=== PATIENT | male | born 1990 | race Caucasian/White ===

== ENCOUNTER 2018-04-20 18:18 | Emergency (ER) | payer BC ==
--- NOTE | 2018-04-20 19:30 | ER Document Report ---
ED General - General Mode of Arrival: Ambulatory Information source: Patient TRAVEL OUTSIDE OF THE [place] IN LAST 30 DAYS: No <DANIEL RIOS - Last Filed: 04/20/18 22:48> <ALEX CASTAÑEDA - Last Filed: 04/21/18 01:39> - General Chief Complaint: Fall Injury Stated Complaint: KNEE LACERATION/FALL Time Seen by Provider: 04/20/18 18:46 Notes: 27 y.o male presents to the ED s/p fall and injury to his LT knee. Pt reports that he slipped outside on his shed and fell on his LT knee and sliced it. Pt reports a tetanus vaccination within the last 2 years. Pt denies any other medical issues. (DANIEL RIOS) - Related Data Allergies/Adverse Reactions: No Known Allergies Allergy (Verified 04/20/18 18:19) Past Medical History - General Information source: Patient - Social History Smoking Status: Unknown if Ever Smoked Occupation: [employer] Family History: Reviewed & Not Pertinent - Immunizations Hx Diphtheria, Pertussis, Tetanus Vaccination: Yes - W/in the last 2 years <DANIEL RIOS - Last Filed: 04/20/18 22:48> Review of Systems - Review of Systems Constitutional: No symptoms reported EENT: No symptoms reported Cardiovascular: No symptoms reported Respiratory: No symptoms reported Gastrointestinal: No symptoms reported Genitourinary: No symptoms reported Male Genitourinary: No symptoms reported Musculoskeletal: No symptoms reported Skin: See HPI, Other - Laceration LT knee Hematologic/Lymphatic: No symptoms reported Neurological/Psychological: No symptoms reported -: Yes All other systems reviewed and negative <DANIEL RIOS - Last Filed: 04/20/18 22:48> Physical Exam <DANIEL RIOS - Last Filed: 04/20/18 22:48> <ALEX CASTAÑEDA - Last Filed: 04/21/18 01:39> - Vital signs Vitals: Temp Pulse Resp BP Pulse Ox 98.3 F 72 16 134/88 H 96 04/20/18 18:42 04/20/18 18:42 04/20/18 18:42 04/20/18 18:42 04/20/18 18:42 - Notes Notes: Physical Exam: General: Alert, appears well. HEENT: Normocephalic. Atraumatic. PERRL. Extraocular movements intact. Oropharynx clear. Neck: Supple. Non-tender. Respiratory: No respiratory distress. Clear and equal breath sounds bilaterally. Cardiovascular: Regular rate and rhythm. Abdominal: Normal Inspection. Non-tender. No distension. Normal Bowel Sounds. Back: Non-tender. No deformity or step off. Extremities: Moves all four extremities. Upper extremities: Normal inspection. Normal ROM. Lower extremities: LLE with 5cm laceration to the center of the patella. No crepitus to LT knee. No visualization of bone or tendon. No edema. Normal ROM. Normal gait. Neurological: Normal cognition. AAOx3. Normal speech. Psychological: Normal affect. Normal Mood. Skin: Warm. Dry. See lower extremities above. (DANIEL RIOS) Course <DANIEL RIOS - Last Filed: 04/20/18 22:48> <ALEX CASTAÑEDA - Last Filed: 04/21/18 01:39> - Re-evaluation Re-evalutation: 04/20/18 20:12 No evidence of fracture or joint capsule compromise. Expiration of knee did not show any foreign debris. X-ray did not show any foreign body. Laceration was thoroughly clean with Hibiclens and saline solution. Patient tolerated well. Return precautions provided regarding signs or symptoms of infection. Antibiotics deferred as wound was thoroughly cleaned. Tetanus has been within the last 2 years (ALEX CASTAÑEDA) - Vital Signs Vital signs: Temp Pulse Resp BP Pulse Ox 98.5 F 63 16 137/85 H 98 04/20/18 20:19 04/20/18 20:19 04/20/18 18:42 04/20/18 20:19 04/20/18 20:19 Procedures - Laceration/Wound Repair Left Knee Time completed: 20:04 <DANIEL RIOS - Last Filed: 04/20/18 22:48> - Laceration/Wound Repair Left Knee Wound length (cm): 5 Wound's Depth, Shape: Linear - No joint capsule visualized no bone visualized full-thickness laceration Laceration pre-procedure: Shur-Clens applied Anesthetic type: 1% Lidocaine Volume Anesthetic (mLs): 5 Wound explored: Clean Wound Repaired With: Sutures Suture Size/Type: Prolene - 2.0 Number of Sutures: 5 Post-procedure wound care: Sterile dressing applied Complications: No <ALEX CASTAÑEDA - Last Filed: 04/21/18 01:39> Discharge <DANIEL RIOS - Last Filed: 04/20/18 22:48> <ALEX CASTAÑEDA - Last Filed: 04/21/18 01:39> - Discharge Clinical Impression: Laceration of knee Qualifiers: Encounter type: initial encounter Laterality: left Qualified Code(s): S81.012A - Laceration without foreign body, left knee, initial encounter Condition: Good Disposition: HOME, SELF-CARE Instructions: Laceration Care ([facility]) Scribe Attestation: 04/21/18 01:39 I personally performed the services described documentation, reviewed and edited the documentation which was dictated to describe my presence, and it accurately records my words and actions. (ALEX CASTAÑEDA) Scribe Documentation - Scribe Written by Scribe:: Riky Madrigal [id number]/20/[id number] acting as scribe for :: Jonny <DANIEL RIOS - Last Filed: 04/20/18 22:48>
--- NOTE | 2018-04-20 19:39 | RADIOLOGY REPORT (SQ) ---
EXAM DESCRIPTION: KNEE LEFT 3 VIEWS COMPLETED DATE/TIME: 04/20/2018 7:18 pm REASON FOR STUDY: fall, laceration, pain COMPARISON: None. NUMBER OF VIEWS: Four views. TECHNIQUE: AP, lateral, and both oblique radiographic images acquired of the left knee. LIMITATIONS: None. FINDINGS: MINERALIZATION: Normal. BONES: No acute fracture or dislocation. No worrisome bone lesions. JOINT: No effusion. SOFT TISSUES: Prepatellar soft tissue swelling. No radio-opaque foreign body. OTHER: No other significant finding. IMPRESSION: No fracture or radiopaque foreign body. TECHNICAL DOCUMENTATION: JOB ID: [id number] [employer]- All Rights Reserved Reading location - IP/workstation name: [email or web address]
[2018-04-20] MEDS ORDERED: LIDOCAINE 1% INJ-PF (10 MG/ML) 30 ML SDV INJ ONE ×2 (19:41→19:42)
[2018-04-20] MEDS ORDERED: HYDROCODONE/ACETAMINOPHEN 5-325 MG (6 TAB/ER DISP) PO PRN (20:15)
[2018-04-20 20:20] VITALS: BP 137/85
== END 2018-04-20 20:34 | disposition home or self-care (01) ==
LOC: ER 18:18
PROC: 0HQLXZZ Repair Left Lower Leg Skin, External Approach (ICD-10-PCS; principal; 2018-04-20)
DX: S81.012A Laceration without foreign body, left knee, initial encounter (principal); W01.0XXA Fall on same level from slipping, tripping and stumbling without subsequent striking against object, initial encounter
CPT/HCPCS: 99283